=== PATIENT | male | born 1970 | race Caucasian/White ===

== ENCOUNTER 2020-04-28 02:49 | Emergency (ER) | payer MEDICAID ==
[2020-04-28 03:04] VITALS: BP 142/86; PULSE 74
[2020-04-28] MEDS ORDERED: Alum Hydrox/Mag Hydrox/Simeth 30 ML, Lidocaine 2% 15 ML PO STA ×2 (03:34)
--- NOTE | 2020-04-28 03:38 | EDM.PDOC ---
ED HPI GENERAL MEDICAL PROBLEM - General Chief Complaint: Abdominal Pain Stated Complaint: stomach pain throwing up blood Time Seen by Provider: 04/28/20 03:15 Source of Information: Reports: Patient History Limitations: Reports: No Limitations - History of Present Illness INITIAL COMMENTS - FREE TEXT/NARRATIVE: Mr. Boone is a very pleasant 49-year-old gentleman who now presents to the emergency department with recurrent upper abdominal pain, nausea, and vomiting. He states that he initially developed upper abdominal pain and bloating sensation around November of this year. A few weeks later, he redeveloped the same pain, along with nausea and vomiting. He noted that vomiting helped with his pain. He had several similar episodes thereafter. He was seen in our clinic on 04/10/2020 after an episode of abdominal pain was not improved with vomiting. Work-up included a CBC, CMP, and CRP. His TBil was found to be elevated at 2.0, and his CRP elevated at 2.6, with the remainder of his tests being unremarkable. He states that there was some speculation that he might be suffering from an ulcer. He was prescribed omeprazole 1 tablet QAM and sucralfate 1 tablet QID. States that he has continued to take the omeprazole, with his most recent dose this morning, however, he states that he ran out of the sucralfate with his last dose yesterday morning, 04/27/2020. He now presents to the ED stating that he redeveloped the same upper abdominal pain, that he describes as a "knot" around 21:00 last night. He took some Pepto-Bismol around 01:00, which did not help. The pain continued, therefore he induced vomiting, several times, to see if that would improve his pain. He vomited up the Pepto-Bismol, and on his 4th vomit, he noticed he was spitting some blood. His last emesis was in our waiting room. The patient notes that his son was killed a few months ago, which may be a significant stressor in his life. His ucblyqtn-mh-xvb and granddaughter have since moved in with he and his . Here in the ED, the patient's initial BP is found to be mildly elevated at 142/86, otherwise, he is hemodynamically stable, afebrile, saturating 99% on room air. Other than his recurrent gastrointestinal issues, the patient denies having a recent fever, chills, sore throat, ear pain, nasal or sinus congestion, cough, dyspnea, chest pain, palpitations, constipation, diarrhea, urinary symptoms, recent weight gain or weight loss, recent bloody bowel movements or black bowel movements, recent joint aches, headaches, or rashes. The patient's PCP is going to be Dr. Evelyne Hopkins. He has not received an influenza vaccine this season, and declined an offer to receive one here in the ED. Abdomen Pain Score (Numeric/FACES): 8 - Related Data Allergies Allergy/AdvReac Type Severity Reaction Status Date / Time No Known Allergies Allergy Verified 04/28/20 03:04 Home Meds: Home Meds Bisoprolol/Hydrochlorothiazide [Bisoprolol-Hctz 2.5-6.25 mg Tb] 1 tab PO DAILY 04/28/20 [History] Omeprazole 1 tab PO Q12H #60 tablet. 04/28/20 [Rx] Sucralfate 1 tab PO QID #120 tablet 04/28/20 [Rx] Past Medical History Cardiovascular History: Reports: Hypertension Gastrointestinal History: Reports: Hemorrhoids Oncologic (Cancer) History: Reports: Squamous Cell Carcinoma (right forearm, excised) - Past Surgical History Oncologic Surgical History: Reports: Other (See Below) (Right forearm SCC excision) Social & Family History - Tobacco Use Tobacco Use Status *Q: Never Tobacco User - Caffeine Use Caffeine Use: Reports: None - Alcohol Use Alcohol Use History: No - Recreational Drug Use Recreational Drug Use: No - Living Situation & Occupation Living situation: Reports: , with Spouse, with Family (Pbmenvlb-ni-sos + granddaughter) Occupation: Employed (trash truck driver) ED ROS GENERAL - Review of Systems Review Of Systems: Comprehensive ROS is negative, except as noted in HPI. ED EXAM, GI/ABD - Physical Exam Exam: See Below Exam Limited By: No Limitations General Appearance: Alert, WD/WN, No Apparent Distress Eyes: Bilateral: Normal Appearance, EOMI Ears: Normal External Exam, Hearing Grossly Normal Nose: Normal Inspection Throat/Mouth: Normal Inspection, Normal Lips, Normal Voice, No Airway Compromise Head: Atraumatic, Normocephalic Neck: Normal Inspection, Full Range of Motion Respiratory/Chest: No Respiratory Distress, Lungs Clear, Normal Breath Sounds, No Accessory Muscle Use Cardiovascular: Normal Peripheral Pulses, Regular Rate, Rhythm, No Edema, No Gallop, No JVD, No Murmur, No Rub GI/Abdominal Exam: Normal Bowel Sounds, Soft, No Organomegaly, No Distention, No Abnormal Bruit, No Mass, Tender (Minimal, if any, to the epigastrium only. Completely nontender elsewhere.) Back Exam: Normal Inspection, Full Range of Motion. No: CVA Tenderness (L), CVA Tenderness (R) Extremities: Normal Inspection, Normal Range of Motion, No Pedal Edema, Normal Capillary Refill Neurological: Alert, Oriented, Normal Cognition, No Motor/Sensory Deficits Psychiatric: Normal Affect Skin Exam: Warm, Dry, Intact, Normal Color, No Rash Course - Vital Signs Last Recorded V/S: Last Vital Signs Temp 35.6 C L 04/28/20 02:59 Pulse 74 04/28/20 02:59 Resp 20 04/28/20 02:59 BP 142/86 H 04/28/20 02:59 Pulse Ox 99 04/28/20 02:59 - Orders/Labs/Meds Labs: Laboratory Tests 04/28/20 04/28/20 Range/Units 03:45 03:45 WBC 10.04 H (4.23-9.07) K/mm3 RBC 4.90 (4.63-6.08) M/mm3 Hgb 14.5 (13.7-17.5) gm/dl Hct 43.3 (40.1-51.0) % MCV 88.4 (79.0-92.2) fl MCH 29.6 (25.7-32.2) pg MCHC 33.5 (32.2-35.5) g/dl RDW Std Deviation 40.2 (35.1-43.9) fL Plt Count 295 (163-337) K/mm3 MPV 9.5 (9.4-12.3) fl Neutrophils % (Manual) 84 H (40-60) % Band Neutrophils % 0 (0-10) % Lymphocytes % (Manual) 14 L (20-40) % Atypical Lymphs % 0 % Monocytes % (Manual) 1 L (2-10) % Eosinophils % (Manual) 1 (0.8-7.0) % Basophils % (Manual) 0 L (0.2-1.2) Platelet Estimate Adequate RBC Morph Comment Normal Sodium 141 (136-145) mEq/L Potassium 4.0 (3.5-5.1) mEq/L Chloride 104 (98-107) mEq/L Carbon Dioxide 29 (21-32) mEq/L Anion Gap 12.0 (5-15) BUN 17 (7-18) mg/dL Creatinine 1.0 (0.7-1.3) mg/dL Est Cr Clr Drug Dosing 110.91 mL/min Estimated GFR (MDRD) > 60 (>60) mL/min BUN/Creatinine Ratio 17.0 (14-18) Glucose 123 H (74-106) mg/dL Calcium 9.1 (8.5-10.1) mg/dL Total Bilirubin 0.8 (0.2-1.0) mg/dL AST 17 (15-37) U/L ALT 34 (16-63) U/L Alkaline Phosphatase 58 (46-116) U/L Total Protein 7.5 (6.4-8.2) g/dl Albumin 4.1 (3.4-5.0) g/dl Globulin 3.4 gm/dL Albumin/Globulin Ratio 1.2 (1-2) Lipase 246 (73-393) U/L Meds: Medications Discontinued Medications Generic Name Dose Route Start Last Admin Trade Name Freq PRN Reason Stop Dose Admin Al Hydroxide/Mg Hydroxide 30 0 ml 04/28/20 03:34 04/28/20 03:39 ml/ Lidocaine HCl 15 ml PO 04/28/20 03:35 45 ml ONETIME STA Administration Hydromorphone HCl 1 mg 04/28/20 04:17 04/28/20 04:28 Dilaudid IVPUSH 04/28/20 04:18 1 mg ONETIME ONE Administration Sodium Chloride 1,000 mls @ 999 mls/hr 04/28/20 04:17 04/28/20 04:26 Normal Saline IV 04/28/20 05:17 999 mls/hr ONETIME ONE Administration Ondansetron HCl 4 mg 04/28/20 04:17 04/28/20 04:27 Zofran IVPUSH 04/28/20 04:18 4 mg ONETIME ONE Administration - Re-Assessments/Exams Free Text/Narrative Re-Assessment/Exam: 04/28/20 03:34 I have ordered a GI cocktail, to see if that modifies the patient's current upper abdominal pain at all, and in the meantime, we will check a CBC, CMP, and lipase level. Although the patient has upper abdominal pain, he has minimal, if any, tenderness, therefore I do not see an indication for an emergency CT of his abdomen at this time. 04/28/20 04:17 The patient states that the GI cocktail did not help his pain at all. I will order some Dilaudid, Zofran, and IV fluid to see if we can get him feeling better. 04/28/20 05:24 Test results discussed with the patient. His CBC, CMP, and lipase are all unremarkable. While the GI cocktail did not help the patient, he states that the Dilaudid did help a great deal. I would like the patient to increase his omeprazole to 1 tablet twice a day, and we will therefore write a prescription for that. I will also renew his sucralfate. He is to follow-up with Dr. Hopkins on Thursday to arrange for an EGD as soon as possible. Departure - Departure Time of Disposition: :26 Disposition: Home, Self-Care 01 Condition: Good Clinical Impression: Epigastric abdominal pain of unknown etiology - Discharge Information *PRESCRIPTION DRUG MONITORING PROGRAM REVIEWED*: Not Applicable *COPY OF PRESCRIPTION DRUG MONITORING REPORT IN PATIENT CHING: Not Applicable Referrals: Evelyne Hopkins MD [Primary Care Provider] - Forms: ED Department Discharge Additional Instructions: You were seen in the emergency room for recurrent upper abdominal pain with nausea and vomiting. Work-up in the ER included several blood tests, which returned to normal. You do not have pancreatitis. The cause of your abdominal pain is not entirely clear, but is most likely due to an ulcer, gastritis, or esophagitis. Refill prescriptions for both omeprazole and sucralfate have been sent to the [place] [facility]. Take 1 tablet of omeprazole every 12 hours. Take 1 tablet of sucralfate 4 times a day - one with each meal, and a 4th at bedtime. Follow-up with Dr. Evelyne Hopkins this coming 04/30/2020, to arrange to undergo an EGD (a scope of the esophagus and stomach) as soon as possible. If any other problems, please do not hesitate to return to the ER. Sepsis Event Note (ED) - Evaluation Sepsis Screening Result: No Definite Risk - Focused Exam Vital Signs: Vital Signs Temp Pulse Resp BP Pulse Ox 04/28/20 02:59 35.6 C L 74 20 142/86 H 99
[2020-04-28] MEDS ORDERED: Sodium Chloride 0.9% 1,000 ML IV ONE (04:17)
[2020-04-28] MEDS ORDERED: Ondansetron 4 MG/2 ML SDV IVPUSH ONE (04:17)
[2020-04-28] MEDS ORDERED: HYDROmorphone 1 MG/ML Syringe IVPUSH ONE (04:17)
== END 2020-04-28 05:27 | disposition home or self-care (01) ==
LOC: JD.ED 02:49
DX: R10.13 Epigastric pain (principal); I10 Essential (primary) hypertension; Z79.899 Other long term (current) drug therapy
CPT/HCPCS: 36415; 80053; 83690; 85007; 85027; 96374; 96375; 99284; A9270; J1170; J2405; J7030

== ENCOUNTER 2020-05-15 07:50 | Day surgery (SDC) | payer MEDICAID ==
[~2020-05-15 07:50] MED LIST: Lactated Ringers 1,000 ML IV SCH; Lidocaine 1% 4 ML ONE; Lidocaine 1%/Sod Bicarbonate in NS 8.4% 1 ML Syringe IDERM PRN; Midazolam 1 MG/ML 2 ML SDV ONE; Ondansetron 4 MG/2 ML SDV ONE; Propofol 200 MG/20 ML SDV ONE; Rocuronium 50 MG/5 ML Vial ONE; Sodium Chloride 0.9% 10 ML Syringe FLUSH PRN; fentaNYL 250 MCG/5 ML SDV ONE
[2020-05-15] MEDS ORDERED: Bupivacaine 0.5% 30 ML SDV ONE (08:04)
--- NOTE | 2020-05-15 08:05 | PCM.PREANE ---
Preanesthetic Assessment - Procedure Proposed Procedure: lap choley - Anesthesia/Transfusion/Family Hx Anesthesia History: No Prior Anesthesia Family History of Anesthesia Reaction: No Transfusion History: No Prior Transfusion(s) - Review of Systems General: No Symptoms Pulmonary: Other (seasonal allergy- sneezing and runny nose) Cardiovascular: Other (taacycardia before and was checked) Gastrointestinal: No Symptoms Neurological: No Symptoms Other: Reports: Thyroid Problems (lump on throat and benign) - Physical Assessment NPO Status Date: 05/14/20 NPO Status Time: 23:00 Vital Signs: 129/79 74 96% 16 97.3 Height: 6 ft 4 in Weight: 112 kg ASA Class: 2 Mental Status: Alert & Oriented x3 Airway Class: Mallampati = 1 Dentition: Reports: Normal Dentition Thyro-Mental Finger Breadths: 3 Mouth Opening Finger Breadths: 3 ROM/Head Extension: Full Lungs: Clear to Auscultation, Normal Respiratory Effort Cardiovascular: Regular Rate, Regular Rhythm - Allergies Allergies/Adverse Reactions: Allergies Allergy/AdvReac Type Severity Reaction Status Date / Time No Known Allergies Allergy Verified 04/28/20 03:04 - Blood Blood Available: No - Acknowledgements Anesthesia Type Planned: General Anesthesia Pt an Appropriate Candidate for the Planned Anesthesia: Yes Alternatives and Risks of Anesthesia Discussed w Pt/Guardian: Yes Pt/Guardian Understands and Agrees with Anesthesia Plan: Yes PreAnesthesia Questionnaire Cardiovascular History: Reports: Hypertension Other Cardiovascular History: tachycardia Respiratory History: Reports: None Gastrointestinal History: Reports: Hemorrhoids Musculoskeletal History: Reports: None Oncologic (Cancer) History: Reports: Squamous Cell Carcinoma (right forearm, excised) - Past Surgical History Oncologic Surgical History: Reports: Other (See Below) (Right forearm SCC excision) - SUBSTANCE USE Tobacco Use Status *Q: Former Tobacco User Tobacco Use Within Last Twelve Months: No Second Hand Smoke Exposure: No Days Per Week of Alcohol Use: 0 Recreational Drug Use History: No - HOME MEDS Home Medications: Home Meds Bisoprolol/Hydrochlorothiazide [Bisoprolol-Hctz 2.5-6.25 mg Tb] 1 tab PO DAILY 04/28/20 [History] Omeprazole 1 tab PO Q12H #60 tablet. 04/28/20 [Rx] Sucralfate 1 tab PO QID #120 tablet 04/28/20 [Rx] - CURRENT (IN HOUSE) MEDS Current Meds: Current Medications Lactated Ringer's (Ringers, Lactated) 1,000 mls @ 125 mls/hr IV ASDIRECTED JESSIKA Stop: 05/15/20 23:00 Lidocaine/Sodium Bicarbonate (Buffered Lidocaine 1% In Ns 8.4%) 0.25 ml IDERM ONETIME PRN PRN Reason: Prior to IV Start Stop: 05/15/20 18:00 Sodium Chloride (Saline Flush) 10 ml FLUSH ASDIRECTED PRN PRN Reason: Keep Vein Open Stop: 05/15/20 18:00 Discontinued Medications Fentanyl (Sublimaze) Confirm Administered Dose 250 mcg .ROUTE .STK-MED ONE Stop: 05/15/20 07:34 Lidocaine HCl (Xylocaine-Mpf 1%) Confirm Administered Dose 4 mls @ as directed .ROUTE .STK-MED ONE Stop: 05/15/20 07:35 Midazolam HCl (Versed 1 Mg/Ml) Confirm Administered Dose 2 mg .ROUTE .STK-MED ONE Stop: 05/15/20 07:34 Ondansetron HCl (Zofran) Confirm Administered Dose 4 mg .ROUTE .STK-MED ONE Stop: 05/15/20 07:34 Propofol (Diprivan 20 Ml) Confirm Administered Dose 200 mg .ROUTE .STK-MED ONE Stop: 05/15/20 07:34 Rocuronium [place] (Zemuron) Confirm Administered Dose 50 mg .ROUTE .STK-MED ONE Stop: 05/15/20 07:34
[2020-05-15] MEDS ORDERED: ceFAZolin 1 GM Vial ONE (09:43)
[2020-05-15] MEDS ORDERED: Lactated Ringers 1,000 ML ONE (09:55)
[2020-05-15] MEDS ORDERED: HYDROmorphone 0.5 MG/0.5 ML Syringe ONE ×2 (10:03→10:04)
[2020-05-15] MEDS ORDERED: Rocuronium 50 MG/5 ML Vial ONE (10:36)
[2020-05-15] MEDS ORDERED: fentaNYL 100 MCG/2 ML SDV ONE (10:38)
[2020-05-15] MEDS ORDERED: Ketorolac 30 MG/ML SDV ONE (10:40)
--- NOTE | 2020-05-15 11:09 | PCM.PRNOTE ---
- Free Text/Narrative Note: Date: 05/15/2020 Operation: diagnostic esophagogastroduodenoscopy, laparoscopic cholecystectomy Surgeon: Deon Correa MD Antibiotic: 2 g ancef IV pre-op EBL: 20 cc Findings: small sliding hiatal hernia. chronic calculous cholecystitis. Critical view of safety obtained. Detailed Report: The patient was taken to the operating room and placed on the table in supine position. Timeout was performed, and general endotracheal anesthesia was initiated. First, attention was turned to EGD. The endoscope was inserted in the mouth through a bite block and advanced all the way to the second portion of the duodenum. Sample biopsies were obtained of the duodenal mucosa with cold forceps. The stomach appeared normal with the exception of small sliding hiatal hernia appreciated on retroflexion of the scope within the stomach. Otherwise gastric mucosa appeared normal. Sample biopsies were obtained at the antrum, incisura and the cardia. There appeared to perhaps be some mild chronic inflammatory changes at the GE junction associated with the sliding hiatal hernia. Biopsies were taken from the distal esophageal mucosa. Air was suctioned from the stomach and the scope was slowly withdrawn through the rest of the esophagus. No other abnormalities were noted. Next, the abdomen was prepped and draped in usual sterile fashion. A Veress needle was placed at the left upper quadrant to establish pneumoperitoneum. A 5 mm bladed trocar was placed just superior to the umbilicus, and a 30 degree 5 mm laparoscope was inserted in the abdomen. The Veress insertion site looked good, and the needle was removed. Additional ports were placed under laparoscopic vision. Two 5 mm ports were placed at the right upper quadrant, and a 12 mm trocar was placed in the subxiphoid region. The gallbladder appeared chronically inflamed and was edematous and difficult to grasp and retract. A locking grasper was placed on the fundus, and the gallbladder was retracted cephalad. The infundibulum was retracted laterally, and dissection proceeded. Cystic structures were identified and skeletonized. The cystic artery was diminutive, and was transected using monopolar energy. Dissection continued until a critical view of safety was obtained. Hemolock clips were placed on the cystic duct proxima lly and distally, and laparoscopic lyly were used to divide between clips. The gallbladder was removed from the liver using monopolar energy. The gallbladder was too large to fit in the Endo Catch bag, and as the gallbladder was removed, the skin incision had to be enlarged significantly and the gallbladder had a punctate rupture near the infundibulum as the specimen was being extracted. There was no bilious leakage in the peritoneal cavity. The dissection field appeared clean and dry. The larger incision was closed at the level of fascia with 0 Vicryl using a laparoscopic suture passer. All incisions were closed at the level of the skin with 4-0 Vicryl suture. Wounds were dressed with Dermabond. A total of 30 cc 1% lidocaine with epinephrine was used for local anesthetic throughout the case. The specimen was opened up on the back table, and copious thick black bile with sediment was observed. 2 larger stones were identified, one in the fundus, and one impacted in the proximal portion of the cystic duct. The patient tolerated the operation well, was extubated in the operating room prior to transfer to the recovery unit.
--- NOTE | 2020-05-15 11:16 | PCM.POSTAN ---
POST ANESTHESIA ASSESSMENT - MENTAL STATUS Mental Status: Alert, Oriented - VITAL SIGNS Vital Signs: Last Vital Signs Temp 36.4 C 05/15/20 07:55 Pulse 74 05/15/20 07:55 Resp 16 05/15/20 07:55 BP 129/79 05/15/20 07:55 Pulse Ox 96 05/15/20 07:55 - RESPIRATORY Respiratory Status: Respiratory Rate WNL, Airway Patent, O2 Saturation Stable - CARDIOVASCULAR CV Status: Pulse Rate WNL, Blood Pressure Stable - GASTROINTESTINAL GI Status: No Symptoms - PAIN Pain Score: 0 - POST OP HYDRATION Hydration Status: Adequate & Stable - OBSERVATIONS Free Text/Narrative:: no anesthesia complications noted
[2020-05-15] MEDS: fentaNYL 100 MCG/2 ML SDV IVPUSH PRN ×2 (11:34→13:02)
[2020-05-15] MEDS ORDERED: oxyCODONE 5 MG Tab PO PRN (12:12)
[2020-05-15] MEDS ORDERED: Metoclopramide 10 MG/2 ML SDV IVPUSH ONE (12:21)
[2020-05-15 14:23] VITALS: BP 116/62; PULSE 66
== END 2020-05-15 14:05 | disposition home or self-care (01) ==
LOC: JD.SDS 07:50
PROVIDERS: ATTEND Surgery
DX: K80.12 Calculus of gallbladder with acute and chronic cholecystitis without obstruction (principal); K29.50 Unspecified chronic gastritis without bleeding; K44.9 Diaphragmatic hernia without obstruction or gangrene; K31.89 Other diseases of stomach and duodenum; I10 Essential (primary) hypertension; Z79.899 Other long term (current) drug therapy; Z87.891 Personal history of nicotine dependence
CPT/HCPCS: 43239; 47562; A9270; J0690; J1170; J1885; J2001; J2250; J2405; J2704; J2765; J3010; J3490; J7120; 00790

== ENCOUNTER 2021-11-03 09:38 | Emergency (ER) | payer MEDICAID ==
[2021-11-03 11:32] VITALS: PULSE 62
[2021-11-03 15:27] VITALS: BP 130/85
== END 2021-11-03 12:31 | disposition home or self-care (01) ==
LOC: JD.ED 09:38
DX: K64.4 Residual hemorrhoidal skin tags (principal); I10 Essential (primary) hypertension
CPT/HCPCS: 99282; 99283

== ENCOUNTER 2022-07-13 09:26 | Emergency (ER) | payer MEDICAID ==
[2022-07-13 11:05] VITALS: BP 117/75; PULSE 72
== END 2022-07-13 11:00 | disposition home or self-care (01) ==
LOC: JD.ED 09:26
DX: M65.88 Other synovitis and tenosynovitis, other site (principal); I10 Essential (primary) hypertension
CPT/HCPCS: 73110-26-LT; 73110-LT; 99283

== ENCOUNTER 2024-04-21 07:16 | Day surgery (SDC) | payer OTHER ==
[~2024-04-21 07:16] MED LIST changes: -Lactated Ringers 1,000 ML IV SCH; -Lidocaine 1% 4 ML ONE; -Lidocaine 1%/Sod Bicarbonate in NS 8.4% 1 ML Syringe IDERM PRN; -Midazolam 1 MG/ML 2 ML SDV ONE; -Ondansetron 4 MG/2 ML SDV ONE; -Rocuronium 50 MG/5 ML Vial ONE; +Sodium Chloride 0.9% 10 ML Syringe FLUSH SCH; -fentaNYL 250 MCG/5 ML SDV ONE
[2024-04-21] MEDS: Lactated Ringers 1,000 ML IV SCH (07:25)
[2024-04-21] MEDS ORDERED: Propofol 200 MG/20 ML SDV ONE ×2 (07:38→07:50)
[2024-04-21 09:17] VITALS: BP 130/78; PULSE 87
== END 2024-04-21 08:49 | disposition home or self-care (01) ==
LOC: JD.SDS 07:16
PROVIDERS: ATTEND Surgery
DX: Z12.11 Encounter for screening for malignant neoplasm of colon (principal); K62.1 Rectal polyp; I10 Essential (primary) hypertension; F41.9 Anxiety disorder, unspecified
CPT/HCPCS: 45385; J2704; J7120; 00811